=== PATIENT | male | born 1970 | race Caucasian/White ===

== ENCOUNTER 2018-08-22 16:22 | Emergency (ER) | payer OTHER ==
[2018-08-22 16:31] VITALS: RESP 16
[2018-08-22 17:35] LABS: Basophils % (A) 0 %; Eosinophils # (A) 0.2 k/uL (0-0.7); Eosinophils % (A) 2 %; HCT 47.8 % (39.0-53.0); HGB 15.9 gm/dL (13.0-17.5); Lymphocytes # (A) 0.9 k/uL (1.0-4.8); Lymphocytes % (A) 8 %; MCH 31.3 pg (25.0-35.0); MCHC 33.3 g/dL (31.0-37.0); MCV 94.1 fL (80.0-100.0); Mean Platelet Volume 7.8; Monocytes # (A) 0.4 k/uL (0-1.0); Monocytes % (A) 3 %; Neutrophils # (A) 9.8 k/uL (1.3-7.7); Neutrophils % (A) 86 %; Platelet Count 254 k/uL (150-450); RBC 5.08 m/uL (4.30-5.90); RDW 12.6 % (11.5-15.5); WBC 11.4 k/uL (3.8-10.6)
[2018-08-22] MEDS ORDERED: ONDANSETRON 4 MG/2 ML VIAL IVP STA (17:38)
[2018-08-22] MEDS ORDERED: HYDROmorphone 2 MG/ML 1 ML SYRINGE IVP STA (17:38)
[2018-08-22] MEDS ORDERED: SODIUM CHLORIDE 0.9% 1,000 ML IV ONE (17:38)
[2018-08-22 17:40] LABS: Appearance,Urine Clear (Clear); Bilirubin,Urine Negative (Negative); Blood,Urine Small (Negative); Color,Urine Yellow; Glucose,Urine (UA) Negative (Negative); Hyaline Casts,Urine 5 /lpf (0-2); Ketones,Urine Negative (Negative); Leukocyte Esterase,Urine Negative (Negative); Mucus,Urine Many /hpf; Nitrite,Urine Negative (Negative); Protein,Urine 1+ (Negative); RBC,Urine 3 /hpf (0-5); Squamous Epithelial Cell,Urine <1 /hpf (0-4); Urobilinogen,Urine <2.0 mg/dL (<2.0); WBC,Urine 3 /hpf (0-5)
[2018-08-22 17:44] LABS: ALT 48 U/L (21-72); AST 45 U/L (17-59); Albumin 5.6 g/dL (3.5-5.0); Alkaline Phosphatase 72 U/L (38-126); Amylase 53 U/L (30-110); Anion Gap 13 mmol/L; Blood Urea Nitrogen 13 mg/dL (9-20); Calcium 10.6 mg/dL (8.4-10.2); Carbon Dioxide 24 mmol/L (22-30); Chloride 103 mmol/L (98-107); Glucose 113 mg/dL (74-99); Lipase 82 U/L (23-300); Potassium 4.4 mmol/L (3.5-5.1); Sodium 140 mmol/L (137-145); Total Bilirubin 0.9 mg/dL (0.2-1.3); Total Protein 9.2 g/dL (6.3-8.2)
--- NOTE | 2018-08-22 18:17 | ED ---
Abdominal Pain HPI - General Chief Complaint: Abdominal Pain Stated Complaint: abdominal pain Time Seen by Provider: 08/22/18 17:10 Source: patient Mode of arrival: ambulatory Limitations: no limitations - History of Present Illness Initial Comments: 48-year-old male patient presents to the emergency department today for evaluation of upper abdominal pain. Patient states the pain started last night around 11:00. Patient states he is up all night with this. Patient states this morning he did eat breakfast however shortly after started vomiting. Vomitus has been nonbilious and nonbloody. Denies any constipation or diarrhea. Denies any fevers or chills with this. Patient has had cholecystectomy and subsequently common bile duct blockage. Patient states this pain is similar to these previous episodes. Patient states the pain is radiating into his chest. He denies any shortness of breath. reports that he was pale and clammy at home. Denies taking anything for his symptoms. Patient denies any recent rash, back pain, numbness, tingling, dizziness, weakness, hematuria, dysuria, urinary urgency, urinary frequency, headache, visual changes, or any other complaints. - Related Data Home Medications Medication Instructions Recorded Confirmed Tadalafil [Cialis] 5 mg PO HS 08/22/18 08/22/18 Previous Rx's Medication Instructions Recorded Dicyclomine [Bentyl] 20 mg PO QID #12 tablet 08/22/18 Ondansetron [Zofran ODT] 4 mg PO Q8HR PRN #10 tab 08/22/18 Allergies Allergy/AdvReac Type Severity Reaction Status Date / Time No Known Allergies Allergy Verified 08/22/18 17:49 Review of Systems ROS Statement: Those systems with pertinent positive or pertinent negative responses have been documented in the HPI. ROS Other: All systems not noted in ROS Statement are negative. Past Medical History Past Medical History: No Reported History History of Any Multi-Drug Resistant Organisms: None Reported Past Surgical History: Cholecystectomy, Hernia Repair Past Psychological History: No Psychological Hx Reported Smoking Status: Never smoker Past Alcohol Use History: None Reported Past Drug Use History: None Reported General Exam Limitations: no limitations General appearance: alert, in no apparent distress, other (Physical well- developed, well-nourished adult male patient in no acute distress. Vital signs upon presentation are temperature 98.3F, pulse 53, respirations 16, blood pressure 178/90, pulse ox 98% on room air.) Eye exam: Present: normal appearance, PERRL, EOMI. Absent: scleral icterus, conjunctival injection, periorbital swelling ENT exam: Present: normal exam, normal oropharynx, mucous membranes moist Respiratory exam: Present: normal lung sounds bilaterally. Absent: respiratory distress, wheezes, rales, rhonchi, stridor Cardiovascular Exam: Present: regular rate, normal rhythm, normal heart sounds. Absent: systolic murmur, diastolic murmur, rubs, gallop, clicks GI/Abdominal exam: Present: soft, tenderness, guarding (Generalized tenderness), normal bowel sounds. Absent: distended, rebound, rigid Neurological exam: Present: alert, oriented X3, CN II-XII intact Psychiatric exam: Present: normal affect, normal mood Skin exam: Present: warm, dry, intact, normal color. Absent: rash Course Vital Signs 08/22/18 16:29 Temperature 98.3 F Pulse Rate 53 L Respiratory 16 Rate Blood Pressure 178/90 O2 Sat by Pulse 98 Oximetry Medical Decision Making - Medical Decision Making 48-year-old male patient presented to the emergency department today for evalu ation of upper abdominal pain and vomiting. Physical examination did reveal generalized abdominal tenderness with mild guarding. Labs reviewed and did reveal mildly elevated white blood cell count which could be reactive from vomiting. Patient is afebrile with stable vitals. Upon reevaluation patient does report slightly improved symptoms after receiving pain medications. We did discuss findings and results. We did discuss his symptoms could be related to viral gastroenteritis. He'll be given prescription for Bentyl and Zofran. He is instructed to follow-up with his primary care physician for recheck in 1-2 days. Return parameters were discussed in detail. He verbalizes understanding and agrees with this plan. - Lab Data Result diagrams: 08/22/18 17:20 08/22/18 17:20 Lab Results 08/22/18 08/22/18 08/22/18 Range/Units 17:20 17:20 17:20 WBC 11.4 H (3.8-10.6) k/uL RBC 5.08 (4.30-5.90) m/uL Hgb 15.9 (13.0-17.5) gm/dL Hct 47.8 (39.0-53.0) % MCV 94.1 (80.0-100.0) fL MCH 31.3 (25.0-35.0) pg MCHC 33.3 (31.0-37.0) g/dL RDW 12.6 (11.5-15.5) % Plt Count 254 (150-450) k/uL Neutrophils % 86 % Lymphocytes % 8 % Monocytes % 3 % Eosinophils % 2 % Basophils % 0 % Neutrophils # 9.8 H (1.3-7.7) k/uL Lymphocytes # 0.9 L (1.0-4.8) k/uL Monocytes # 0.4 (0-1.0) k/uL Eosinophils # 0.2 (0-0.7) k/uL Basophils # 0.0 (0-0.2) k/uL Sodium 140 (137-145) mmol/L Potassium 4.4 (3.5-5.1) mmol/L Chloride 103 (98-107) mmol/L Carbon Dioxide 24 (22-30) mmol/L Anion Gap 13 mmol/L BUN 13 (9-20) mg/dL Creatinine 0.78 (0.66-1.25) mg/dL Est GFR (CKD-EPI)AfAm >90 (>60 ml/min/1.73 sqM) Est GFR (CKD-EPI)NonAf >90 (>60 ml/min/1.73 sqM) Glucose 113 H (74-99) mg/dL Calcium 10.6 H (8.4-10.2) mg/dL Total Bilirubin 0.9 (0.2-1.3) mg/dL AST 45 (17-59) U/L ALT 48 (21-72) U/L Alkaline Phosphatase 72 (38-126) U/L Troponin I (0.000-0.034) ng/mL Total Protein 9.2 H (6.3-8.2) g/dL Albumin 5.6 H (3.5-5.0) g/dL Amylase 53 (30-110) U/L Lipase 82 (23-300) U/L Urine Color Yellow Urine Appearance Clear (Clear) Urine pH 6.0 (5.0-8.0) Ur Specific Finley 1.020 (1.001-1.035) Urine Protein 1+ H (Negative) Urine Glucose (UA) Negative (Negative) Urine Ketones Negative (Negative) Urine Blood Small H (Negative) Urine Nitrite Negative (Negative) Urine Bilirubin Negative (Negative) Urine Urobilinogen <2.0 (<2.0) mg/dL Ur Leukocyte Esterase Negative (Negative) Urine RBC 3 (0-5) /hpf Urine WBC 3 (0-5) /hpf Ur Squamous Epith Cells <1 (0-4) /hpf Hyaline Casts 5 H (0-2) /lpf Urine Mucus Many H (None) /hpf 08/22/18 Range/Units 17:49 WBC (3.8-10.6) k/uL RBC (4.30-5.90) m/uL Hgb (13.0-17.5) gm/dL Hct (39.0-53.0) % MCV (80.0-100.0) fL MCH (25.0-35.0) pg MCHC (31.0-37.0) g/dL RDW (11.5-15.5) % Plt Count (150-450) k/uL Neutrophils % % Lymphocytes % % Monocytes % % Eosinophils % % Basophils % % Neutrophils # (1.3-7.7) k/uL Lymphocytes # (1.0-4.8) k/uL Monocytes # (0-1.0) k/uL Eosinophils # (0-0.7) k/uL Basophils # (0-0.2) k/uL Sodium (137-145) mmol/L Potassium (3.5-5.1) mmol/L Chloride (98-107) mmol/L Carbon Dioxide (22-30) mmol/L Anion Gap mmol/L BUN (9-20) mg/dL Creatinine (0.66-1.25) mg/dL Est GFR (CKD-EPI)AfAm (>60 ml/min/1.73 sqM) Est GFR (CKD-EPI)NonAf (>60 ml/min/1.73 sqM) Glucose (74-99) mg/dL Calcium (8.4-10.2) mg/dL Total Bilirubin (0.2-1.3) mg/dL AST (17-59) U/L ALT (21-72) U/L Alkaline Phosphatase (38-126) U/L Troponin I <0.012 (0.000-0.034) ng/mL Total Protein (6.3-8.2) g/dL Albumin (3.5-5.0) g/dL Amylase (30-110) U/L Lipase (23-300) U/L Urine Color Urine Appearance (Clear) Urine pH (5.0-8.0) Ur Specific Finley (1.001-1.035) Urine Protein (Negative) Urine Glucose (UA) (Negative) Urine Ketones (Negative) Urine Blood (Negative) Urine Nitrite (Negative) Urine Bilirubin (Negative) Urine Urobilinogen (<2.0) mg/dL Ur Leukocyte Esterase (Negative) Urine RBC (0-5) /hpf Urine WBC (0-5) /hpf Ur Squamous Epith Cells (0-4) /hpf Hyaline Casts (0-2) /lpf Urine Mucus (None) /hpf - EKG Data -: EKG Interpreted by Me EKG Comments: EKG obtained at 1756 shows sinus bradycardia with a ventricular rate of 53, FL interval 128, QRS duration 96, QT 424, QTC 397. No evidence of ST elevation or depression. - Radiology Data Radiology results: report reviewed, image reviewed CT abdomen and pelvis with contrast was obtained. Report was reviewed in its entirety. Impression by Dr. Navarro shows small right inguinal fluid collecti on could relate to a chronic hematoma or seroma. Otherwise negative computed tomography scan of the abdomen and pelvis. Disposition Clinical Impression: Abdominal pain Disposition: HOME SELF-CARE Condition: Good Instructions (If sedation given, give patient instructions): Abdominal Pain (ED) Additional Instructions: Increase fluids, start with clear liquid diet and advance as tolerated. Take medications as instructed. Follow-up through primary care physician for recheck in 1-2 days. Return to the emergency department immediately for any new, wor sening, or concerning symptoms. Prescriptions: Dicyclomine [Bentyl] 20 mg PO QID #12 tablet Ondansetron [Zofran ODT] 4 mg PO Q8HR PRN #10 tab PRN Reason: Nausea Is patient prescribed a controlled substance at d/c from ED?: No Referrals: Rehana Zapien DO [Primary Care Provider] - 1-2 days Time of Disposition: 19:12
--- NOTE | 2018-08-22 18:53 | CT ---
EXAMINATION TYPE: CT abdomen pelvis w con DATE OF EXAM: 08/22/2018 COMPARISON: None HISTORY: ab pain x [address] DLP: 871.7 mGycm Automated exposure control for dose reduction was used. TECHNIQUE: Helical acquisition of images was performed from the lung bases through the pelvis. CONTRAST: Performed without Oral Contrast and with IV Contrast, patient injected with 100 mL of Isovue 300. FINDINGS: The lung bases are clear of infiltrate. There is no pleural effusion. There is minimal subsegmental a telectasis at the right lung base. Heart size is normal. There is no pericardial effusion. There are clips from cholecystectomy. Liver s pleen pancreas appear normal. Bile ducts are not dilated. Stomach appears normal. There is no adrenal mass. Kidneys show satisfactory contrast opacification. There is no hydronephrosi s. Ureters are not dilated. There is no retroperitoneal adenopathy. Bladder distends smoothly. There is no inguinal hernia. There is a 2 cm rounded fluid collection in t he right lower quadrant in the right inguinal region. There is no free fluid in the pelvis. There is no sign of free air. There is no mesenteric edema. There is no ascites. I see no intestinal wall thic kening. There are no dilated loops. The appendix appears normal. Lumbar vertebra have normal alignment. There is some narrowing at L5-S1 disc space. I see no focal avery ne destruction. Bony pelvis is intact. IMPRESSION: SMALL RIGHT INGUINAL FLUID COLLECTION COULD RELATE TO A CHRONIC HEMATOMA OR SEROMA. OTHERWISE NEGATIV E CT SCAN OF THE ABDOMEN AND PELVIS.
[2018-08-22] MEDS ORDERED: DICYCLOMINE 10 MG/ML 2 ML AMP IM STA (19:11)
[2018-08-22] MEDS ORDERED: ACET/COD 300 MG/30 MG STARTER PACK 6 TAB BTL PO STA (19:12)
[2018-08-22 19:38] VITALS: BP 155/93; PULSE 63; TEMP 98.1
== END 2018-08-22 19:38 | disposition home or self-care (01) ==
LOC: EC 16:22
DX: R10.84 Generalized abdominal pain (principal); R11.10 Vomiting, unspecified; D72.829 Elevated white blood cell count, unspecified; Z79.899 Other long term (current) drug therapy; Z90.49 Acquired absence of other specified parts of digestive tract
CPT/HCPCS: 36415; 93005; 80053; 82150; 83690; 84484; 85025; 81001; 74177; 99284; 96374; 96375; 96361; 96372; J1170; J0500; J2405; Q9967

== ENCOUNTER 2022-03-01 08:20 | Day surgery (SDC) | payer OTHER ==
[2022-02-25 14:37] VITALS: BMI 30.4
[~2022-03-01 08:20] MED LIST: LACTATED RINGERS 1,000 ML IV SCH
[2022-03-01 09:10] VITALS: TEMP 97.2
[2022-03-01] MEDS ORDERED: PROPOFOL 10 MG/ML 20 ML VIAL IV ONE (09:45)
--- NOTE | 2022-03-01 10:01 | P.PCN ---
Date of Procedure: 03/01/22 Procedure(s) Performed: BRIEF HISTORY: Patient is a 52-year-old pleasant male scheduled for an elective colonoscopy as a part of screening for colorectal neoplasia. PROCEDURE PERFORMED: Colonoscopy. PREOPERATIVE DIAGNOSIS: Screening for colon cancer. IV sedation per Anesthesia. PROCEDURE: After informed consent was obtained, the patient, was brought into the endoscopy unit. IV sedation was administered by Anesthesia under continuous monitoring. Digital rectal examination was normal. Initially the Olympus CF-160 flexible video colonoscope was then inserted in the rectum, gradually advanced into the cecum without any difficulty. Careful examination was performed as the scope was gradually being withdrawn. Ileocecal valve and the appendiceal orifice were visualized and appeared normal. Prep was excellent. Mucosa of the cecum, ascending colon, transverse colon, descending colon, sigmoid colon, and rectum appeared normal. Retroflexion was performed in the rectum and no lesions were seen. The patient tolerated the procedure well. IMPRESSION: Normal-appearing colon from rectum to cecum with no evidence of colorectal neoplasia . RECOMMENDATIONS: Findings of this examination were discussed with the patient is well as his family. He was advised to have a repeat screening colonoscopy in 10 years.
[2022-03-01 10:35] VITALS: BP 121/73; PULSE 59; RESP 17
== END 2022-03-01 10:40 | disposition home or self-care (01) ==
LOC: ORWHC2ENDO 08:20
PROVIDERS: ATTEND Internal Medicine Gastroenterology
DX: Z12.11 Encounter for screening for malignant neoplasm of colon (principal); Z79.899 Other long term (current) drug therapy
CPT/HCPCS: 45378; J2704